=== PATIENT | female | born 1935 | race Hispanic/Latino ===

== ENCOUNTER 2021-06-10 12:38 | Inpatient (IN) | payer MEDICARE, OTHER ==
[~2021-06-10] VITALS: Ht 157.5 cm; Wt 80.4 kg
[2021-06-10 12:39] VITALS: BP 107/53
[2021-06-10 13:02] LABS: BASOPHILS % (AUTO) 0.3 % (0.0-5.0); EOSINOPHILS % (AUTO) 0.9 % (0.0-8.0); HEMATOCRIT 36.7 % (36-48); LYMPHOCYTES % (AUTO) 10.4 % (21.0-51.0); MEAN CORPUSCULAR HEMOGLOBIN 29.3 pg (27.0-33.0); MEAN CORPUSCULAR HGB CONC 33.8 g/dL (32.0-36.0); MEAN CORPUSCULAR VOLUME 86.8 fL (79-99); MONOCYTES % (AUTO) 4.3 % (3.0-13.0); NEUTROPHILS % (AUTO) 83.7 % (40.0-77.0); PLATELET COUNT (AUTO) 147 K/uL (130-400); RED BLOOD CELL COUNT(AUTO) 4.23 MIL/uL (4.00-5.50); RED CELL DISTRIBUTION WIDTH 13.9 % (11.0-15.5); WHITE BLOOD COUNT (AUTO) 12.7 K/uL (4.8-10.8)
[2021-06-10 13:11] LABS: CREATININE 2.3 mg/dL (0.5-1.5); POTASSIUM 3.8 mmol/L (3.5-5.1)
[2021-06-10 13:22] LABS: ALBUMIN 2.8 g/dL (3.5-5.0); BILIRUBIN,TOTAL 0.7 mg/dL (0.2-1.0); TOTAL PROTEIN, SERUM 5.9 g/dL (6.0-8.3); TROPONIN I 0.24 ng/mL (0.00-0.06)
[2021-06-10 13:45] LABS: ABG BASE EXCESS 2.4 mmol/L (-2.0-3.0); ABG HCO3 27.1 mmol/L (21.0-28.0); ABG OXYGEN SATURATION 94.1 % (95.0-99.0); ABG PCO2 42 mmHg (32-45)
[2021-06-10] MEDS ORDERED: NITROGLYCERIN 1GM OINT 1 INCH/1GM TD SCH (14:00)
[2021-06-10] MEDS ORDERED: ASPIRIN 325MG TAB PO SCH (14:00)
[2021-06-10] MEDS ORDERED: INSULIN HUMULIN R 100 UNIT/ML 3ML SQ ONE (14:30)
[2021-06-10] MEDS ORDERED: 0.9%NACL 1000ML 1,000 ML IV SCH (14:30)
[2021-06-10] MEDS ORDERED: ENOXAPARIN SODIUM 80 MG/0.8 ML SQ SCH (14:30)
[2021-06-10 15:21] LABS: INR 1.01 (0.85-1.15)
[2021-06-10 15:31] LABS: TROPONIN I 0.23 ng/mL (0.00-0.06)
[2021-06-10] MEDS ORDERED: ROSU20TA31 PO (17:10)
[2021-06-10] MEDS ORDERED: SITA25TA5 PO (17:12)
[2021-06-10] MEDS ORDERED: GABA-529 PO (17:13)
[2021-06-10] MEDS ORDERED: FURO20TA4 PO (17:14)
[2021-06-10] MEDS ORDERED: CLOP75TA32 PO (17:15)
[2021-06-10] MEDS ORDERED: PRED20TA3 PO (17:16)
[2021-06-10] MEDS ORDERED: METF-444 PO (17:17)
[2021-06-10] MEDS ORDERED: RIVA2.5T PO (17:18)
[2021-06-10] MEDS ORDERED: METO25TA6 PO (17:19)
[2021-06-10] MEDS ORDERED: LEVO50CA4 PO (17:20)
[2021-06-10] MEDS ORDERED: ASPI-1197 PO (17:21)
[2021-06-10] MEDS ORDERED: CHOL500051 PO (17:25)
[2021-06-10] MEDS ORDERED: MAGN400T53 PO (17:25)
[2021-06-10] MEDS ORDERED: PYRI200T10 PO (17:26)
[2021-06-10] MEDS ORDERED: CRAN1CAP10 PO (17:27)
[2021-06-10] MEDS ORDERED: CYAN500T46 PO (17:27)
[2021-06-10 17:30] VITALS: BP 106/65
[2021-06-10 21:18] VITALS: BP 100/84
[2021-06-10 21:31] LABS: TROPONIN I 0.22 ng/mL (0.00-0.06)
[2021-06-10] MEDS ORDERED: ACETAMINOPHEN 650 MG SUPPOSITORY RC PRN (23:30)
[2021-06-10] MEDS ORDERED: ONDANSETRON 4MG TABLET PO PRN (23:30)
[2021-06-10] MEDS ORDERED: ACETAMINOPHEN 325 MG TAB PO PRN (23:30)
[2021-06-10] MEDS: CEFTRIAXONE 1G VIAL IVP SCH (23:30)
[2021-06-10] MEDS ORDERED: CLONIDINE HCL 0.1 MG TABLET PO PRN (23:30)
[2021-06-11] VITALS (9 sets, daily range): BP systolic 95–127; BP diastolic 49–64
[2021-06-11] MEDS ORDERED: PHARMACY COMMUNICATION MISC SCH (00:30)
[2021-06-11] MEDS: IPRATROPIUM/ALBUTEROL SULFATE 3 ML SOLUTION IH SCH ×7 (00:32→21:51)
[2021-06-11 01:42] LABS: TROPONIN I 0.22 ng/mL (0.00-0.06)
[2021-06-11 06:01] LABS: BASOPHILS % (AUTO) 0.4 % (0.0-5.0); EOSINOPHILS % (AUTO) 1.2 % (0.0-8.0); HEMATOCRIT 34.1 % (36-48); LYMPHOCYTES % (AUTO) 18.9 % (21.0-51.0); MEAN CORPUSCULAR HEMOGLOBIN 28.6 pg (27.0-33.0); MEAN CORPUSCULAR HGB CONC 32.8 g/dL (32.0-36.0); NEUTROPHILS % (AUTO) 75.1 % (40.0-77.0); PLATELET COUNT (AUTO) 117 K/uL (130-400); RED BLOOD CELL COUNT(AUTO) 3.92 MIL/uL (4.00-5.50); RED CELL DISTRIBUTION WIDTH 13.8 % (11.0-15.5); WHITE BLOOD COUNT (AUTO) 7.6 K/uL (4.8-10.8)
[2021-06-11 06:22] LABS: HEMOGLOBIN A1C 12.5 % (4.0-6.0)
[2021-06-11 06:26] LABS: MAGNESIUM 1.8 mg/dL (1.80-2.40); PHOSPHORUS 3.9 mg/dL (2.5-4.9); POTASSIUM 3.1 mmol/L (3.5-5.1); THYROID STIMULATING HORMONE 1.96 uIU/mL (0.36-3.74)
[2021-06-11] MEDS: INSULIN LISPRO 100 UNIT/ML 3ML SQ SCH ×4 (07:30→21:24)
[2021-06-11] MEDS: CHOLECALCIFEROL 125 MCG PO SCH (09:00)
[2021-06-11] MEDS: ASPIRIN 81 MG EC TAB PO SCH (10:04)
[2021-06-11] MEDS: PANTOPRAZOLE 40 MG TAB DR PO SCH (10:04)
[2021-06-11] MEDS: METOPROLOL TARTRATE 25 MG TAB PO SCH ×2 (10:04→21:00)
[2021-06-11] MEDS: CLOPIDOGREL 75MG TAB PO SCH (10:04)
[2021-06-11] MEDS: RIVAROXABAN 2.5 MG TABLET PO SCH ×2 (10:04→21:23)
[2021-06-11] MEDS: CYANOCOBALAMIN (VITAMIN B-12) 1,000 MCG TABLET PO SCH (18:53)
[2021-06-11] MEDS: ATORVASTATIN 40 MG TABLET PO SCH (21:21)
[2021-06-11] MEDS: PYRIDOXINE HCL 50 MG TABLET PO SCH (21:26)
[2021-06-11] MEDS: CEFTRIAXONE 1G VIAL IVP SCH (22:51)
[2021-06-11] MEDS ORDERED: VANCOMYCIN 1G VIAL IVPB ONE (23:30)
[2021-06-11] MEDS ORDERED: VANCOMYCIN PROTOCOL PER PHARMACY IV SCH (23:30)
[2021-06-12] MEDS ORDERED: VANCOMYCIN 1G/250ML KIT 250 ML IV ONE (00:30)
[2021-06-12] MEDS: IPRATROPIUM/ALBUTEROL SULFATE 3 ML SOLUTION IH SCH ×6 (01:43→23:20)
[2021-06-12] MEDS ORDERED: 0.9%NACL 100ML 100 ML ONE (07:31)
[2021-06-12 07:34] LABS: HEMATOCRIT 33.2 % (36-48); MEAN CORPUSCULAR HEMOGLOBIN 28.9 pg (27.0-33.0); MEAN CORPUSCULAR HGB CONC 32.8 g/dL (32.0-36.0); MEAN CORPUSCULAR VOLUME 88.1 fL (79-99); RED BLOOD CELL COUNT(AUTO) 3.77 MIL/uL (4.00-5.50); RED CELL DISTRIBUTION WIDTH 13.9 % (11.0-15.5); WHITE BLOOD COUNT (AUTO) 8.7 K/uL (4.8-10.8)
[2021-06-12 07:54] LABS: CREATININE 1.6 mg/dL (0.5-1.5); POTASSIUM 3.4 mmol/L (3.5-5.1)
[2021-06-12] MEDS: LEVOTHYROXINE 50 MCG TABLET PO SCH (08:05)
[2021-06-12] MEDS: INSULIN LISPRO 100 UNIT/ML 3ML SQ SCH ×4 (08:05→21:30)
[2021-06-12] MEDS: CYANOCOBALAMIN (VITAMIN B-12) 1,000 MCG TABLET PO SCH (08:06)
[2021-06-12] MEDS: METOPROLOL TARTRATE 25 MG TAB PO SCH ×2 (08:06→22:01)
[2021-06-12] MEDS: ASPIRIN 81 MG EC TAB PO SCH (08:06)
[2021-06-12] MEDS: CLOPIDOGREL 75MG TAB PO SCH (08:06)
[2021-06-12] MEDS: PANTOPRAZOLE 40 MG TAB DR PO SCH (08:06)
[2021-06-12 08:36] VITALS: BP_SYST 110; BP_SYST 135; BP_DIAS 49; BP_DIAS 74
[2021-06-12 08:55] VITALS: BP 127/94
[2021-06-12] MEDS: PYRIDOXINE HCL 50 MG TABLET PO SCH (09:00)
[2021-06-12] MEDS: CHOLECALCIFEROL 125 MCG PO SCH (09:00)
[2021-06-12] MEDS: RIVAROXABAN 2.5 MG TABLET PO SCH ×2 (09:07→22:01)
[2021-06-12] MEDS ORDERED: TRAMADOL HCL 50 MG TABLET PO PRN (10:30)
[2021-06-12 12:00] VITALS: BP 125/62
[2021-06-12] MEDS: VANCOMYCIN 500MG+NS 100ML IVPB IV SCH (14:10)
[2021-06-12] MEDS: 0.9%NACL 100ML 100 ML IV SCH (14:10)
[2021-06-12 16:41] VITALS: BP 142/72
[2021-06-12 20:29] VITALS: BP 142/72
[2021-06-12] MEDS: ATORVASTATIN 40 MG TABLET PO SCH (22:01)
[2021-06-12] MEDS: CEFTRIAXONE 1G VIAL IVP SCH (23:31)
[2021-06-12] MEDS ORDERED: GUAIFENESIN-DM 200/20 MG 10 ML ONE (23:46)
[2021-06-13] VITALS (7 sets, daily range): BP systolic 125–155; BP diastolic 59–119
[2021-06-13] MEDS ORDERED: GUAIFENESIN-DM 200/20 MG 10 ML PO PRN
[2021-06-13] MEDS: IPRATROPIUM/ALBUTEROL SULFATE 3 ML SOLUTION IH SCH ×6 (03:31→23:08)
[2021-06-13 05:47] LABS: HEMATOCRIT 31.6 % (36-48); MEAN CORPUSCULAR HEMOGLOBIN 28.9 pg (27.0-33.0); MEAN CORPUSCULAR HGB CONC 33.2 g/dL (32.0-36.0); MEAN CORPUSCULAR VOLUME 87.1 fL (79-99); RED BLOOD CELL COUNT(AUTO) 3.63 MIL/uL (4.00-5.50); RED CELL DISTRIBUTION WIDTH 13.9 % (11.0-15.5); WHITE BLOOD COUNT (AUTO) 5.4 K/uL (4.8-10.8)
[2021-06-13] MEDS ORDERED: GUAIFENESIN-DM 200/20 MG 10 ML ONE (05:51)
[2021-06-13] MEDS: LEVOTHYROXINE 50 MCG TABLET PO SCH (05:55)
[2021-06-13 06:06] LABS: CREATININE 1.1 mg/dL (0.5-1.5)
[2021-06-13 06:26] LABS: POTASSIUM 2.8 mmol/L (3.5-5.1)
[2021-06-13] MEDS: INSULIN LISPRO 100 UNIT/ML 3ML SQ SCH ×4 (08:00→21:45)
[2021-06-13] MEDS ORDERED: MAGNESIUM 2GM PREMIX 50ML 50 ML IV PRN (09:00)
[2021-06-13] MEDS ORDERED: POTASSIUM CHLORIDE 10% ELIXIR 20 MEQ/15 ML UDCUP PO PRN (09:00)
[2021-06-13] MEDS ORDERED: LIDOCAINE HCL-MPF 1% 2ML VIAL IV PRN (09:00)
[2021-06-13] MEDS: PYRIDOXINE HCL 50 MG TABLET PO SCH (09:00)
[2021-06-13] MEDS: CHOLECALCIFEROL 125 MCG PO SCH (09:00)
[2021-06-13] MEDS ORDERED: POTASSIUM CHLORIDE 20MEQ/100ML 100 ML IV PRN (09:00)
[2021-06-13] MEDS: ASPIRIN 81 MG EC TAB PO SCH (11:58)
[2021-06-13] MEDS: METOPROLOL TARTRATE 25 MG TAB PO SCH ×2 (11:59→21:39)
[2021-06-13] MEDS: CLOPIDOGREL 75MG TAB PO SCH (11:59)
[2021-06-13] MEDS: PANTOPRAZOLE 40 MG TAB DR PO SCH (12:00)
[2021-06-13] MEDS: CYANOCOBALAMIN (VITAMIN B-12) 1,000 MCG TABLET PO SCH (12:00)
[2021-06-13] MEDS: RIVAROXABAN 2.5 MG TABLET PO SCH ×2 (12:04→21:39)
[2021-06-13 14:37] LABS: APPEARANCE,URINE Cloudy (CLEAR); BILIRUBIN,URINE Negative (NEGATIVE); COLOR,URINE Yellow (YELLOW); GLUCOSE, URINE (UA) 500 mg/dL (NEGATIVE); KETONES,URINE Trace mg/dL (NEGATIVE); LEUKOCYTE ESTERASE ,URINE Moderate (NEGATIVE); NITRATE,URINE Negative (NEGATIVE); OCCULT BLOOD,URINE Moderate (NEGATIVE); PH,URINE 5.5 (5.0-8.0); PROTEIN,URINE POS 2+ mg/dL (NEGATIVE); UROBILINOGEN,URINE 0.2 mg/dL (0.2-1.0)
[2021-06-13 15:19] LABS: BACTERIA,URINE Few /HPF (None Seen); WBC,URINE 26-50 /HPF (0-1)
[2021-06-13 15:20] LABS: SQUAMOUS EPITHELIAL CELL,UR None Seen /HPF (0-2)
[2021-06-13] MEDS: KCL 20 MEQ ERTAB PO PRN ×2 (17:23→22:00)
[2021-06-13] MEDS: VANCOMYCIN 500MG+NS 100ML IVPB IV SCH (17:23)
[2021-06-13] MEDS: 0.9%NACL 100ML 100 ML IV SCH (17:24)
[2021-06-13] MEDS: NYSTATIN-TRIAMCINOLONE CREAM 15 GM TP SCH (21:00)
[2021-06-13] MEDS: ATORVASTATIN 40 MG TABLET PO SCH (21:39)
[2021-06-13] MEDS: CEFTRIAXONE 1G VIAL IVP SCH (23:37)
[2021-06-14] MEDS: IPRATROPIUM/ALBUTEROL SULFATE 3 ML SOLUTION IH SCH ×5 (02:06→18:33)
[2021-06-14 03:50] LABS: ALBUMIN 2.3 g/dL (3.5-5.0); BILIRUBIN,TOTAL 0.3 mg/dL (0.2-1.0); CREATININE 1.1 mg/dL (0.5-1.5); POTASSIUM 3.8 mmol/L (3.5-5.1); TOTAL PROTEIN, SERUM 5.5 g/dL (6.0-8.3)
[2021-06-14 04:32] VITALS: BP 135/73
[2021-06-14] MEDS: LEVOTHYROXINE 50 MCG TABLET PO SCH (06:21)
[2021-06-14] MEDS: KCL 20 MEQ ERTAB PO PRN ×3 (06:22→11:58)
[2021-06-14] MEDS: INSULIN LISPRO 100 UNIT/ML 3ML SQ SCH ×3 (06:35→16:39)
[2021-06-14 07:51] VITALS: BP 158/71
[2021-06-14] MEDS: CHOLECALCIFEROL 125 MCG PO SCH (09:00)
[2021-06-14] MEDS ORDERED: MAGNESIUM OXIDE 400 MG TABLET PO SCH (09:00)
[2021-06-14] MEDS ORDERED: LINAGLIPTIN 5 MG TABLET PO SCH (09:00)
[2021-06-14] MEDS ORDERED: FUROSEMIDE 20 MG TABLET PO SCH (09:00)
[2021-06-14] MEDS: NYSTATIN-TRIAMCINOLONE CREAM 15 GM TP SCH (09:00)
[2021-06-14] MEDS: PANTOPRAZOLE 40 MG TAB DR PO SCH (09:11)
[2021-06-14] MEDS: ASPIRIN 81 MG EC TAB PO SCH (09:11)
[2021-06-14] MEDS: RIVAROXABAN 2.5 MG TABLET PO SCH (09:11)
[2021-06-14] MEDS: PYRIDOXINE HCL 50 MG TABLET PO SCH (09:11)
[2021-06-14] MEDS: GABAPENTIN 100 MG CAPSULE PO SCH ×2 (09:12→16:42)
[2021-06-14] MEDS: CYANOCOBALAMIN (VITAMIN B-12) 1,000 MCG TABLET PO SCH (09:12)
[2021-06-14] MEDS: CLOPIDOGREL 75MG TAB PO SCH (09:12)
[2021-06-14] MEDS: METOPROLOL TARTRATE 25 MG TAB PO SCH (09:16)
[2021-06-14] MEDS: METFORMIN HCL 500 MG TABLET PO SCH ×2 (09:16→16:36)
[2021-06-14 11:25] VITALS: BP 138/70
[2021-06-14] MEDS ORDERED: VANCOMYCIN KIT 1 GM/250 ML IV.KIT IV SCH (14:00)
[2021-06-14 15:36] VITALS: BP 145/77
[2021-06-14] MEDS: 0.9%NACL 100ML 100 ML IV SCH (16:38)
== END 2021-06-14 19:45 | DRG 683 ==
LOC: EDH 12:38 → OBSVTOIN 14:28 → EDHIP 14:28 → 4DH 06-12 09:25
PROVIDERS: ADMIT Internal Medicine Critical Care Medicine; ATTEND Internal Medicine Critical Care Medicine
DX: N17.9 Acute kidney failure, unspecified (principal); R78.81 Bacteremia; N39.0 Urinary tract infection, site not specified; I12.9 Hypertensive chronic kidney disease with stage 1 through stage 4 chronic kidney disease, or unspecified chronic kidney disease; I48.91 Unspecified atrial fibrillation; I25.10 Atherosclerotic heart disease of native coronary artery without angina pectoris; N18.9 Chronic kidney disease, unspecified; F03.90 Unspecified dementia, unspecified severity, without behavioral disturbance, psychotic disturbance, mood disturbance, and anxiety; M19.90 Unspecified osteoarthritis, unspecified site; E78.5 Hyperlipidemia, unspecified; E11.22 Type 2 diabetes mellitus with diabetic chronic kidney disease; R41.0 Disorientation, unspecified; E03.9 Hypothyroidism, unspecified; R29.6 Repeated falls; R77.8 Other specified abnormalities of plasma proteins; Z20.822 Contact with and (suspected) exposure to COVID-19; Z79.01 Long term (current) use of anticoagulants; Z79.84 Long term (current) use of oral hypoglycemic drugs; Z79.82 Long term (current) use of aspirin; Z79.899 Other long term (current) drug therapy; Z87.440 Personal history of urinary (tract) infections
CPT/HCPCS: 36415; 36600; 70450; 71045; 76700; 80048; 80053; 80061; 80202; 81001; 82140; 82550; 82803; 82948; 83036; 83605; 83735; 83874; 83880; 84100; 84443; 84484; 85025; 85027; 85378; 85610; 87040; 87077; 87088; 87186; 87635; 87804; 93005; 93306; 93356; 94640; 94664; 97039; C9803; G0378; J0696; J1650; J1815; J3370; J3475; J3480; Q0162

== ENCOUNTER 2021-09-03 00:27 | Inpatient (IN) | payer OTHER ==
[~2021-09-03] VITALS: Ht 152.4 cm; Wt 86.2 kg
[~2021-09-03 00:27] MED LIST: ASPI-1197 PO; CHOL500051 PO; CLOP75TA32 PO; CRAN1CAP10 PO; CYAN500T46 PO; FURO20TA4 PO; GABA-529 PO; LEVO50CA4 PO; MAGN400T53 PO; METF-444 PO; METO25TA6 PO; PRED20TA3 PO; PYRI200T10 PO; RIVA2.5T PO; ROSU20TA31 PO; SITA25TA5 PO
[2021-09-03 01:13] LABS: BASOPHILS % (AUTO) 0.4 % (0.0-5.0); EOSINOPHILS % (AUTO) 0.9 % (0.0-8.0); HEMATOCRIT 26.8 % (36-48); LYMPHOCYTES % (AUTO) 18.2 % (21.0-51.0); MEAN CORPUSCULAR HEMOGLOBIN 27.8 pg (27.0-33.0); MEAN CORPUSCULAR HGB CONC 30.6 g/dL (32.0-36.0); MEAN CORPUSCULAR VOLUME 90.8 fL (79-99); MONOCYTES % (AUTO) 4.1 % (3.0-13.0); NEUTROPHILS % (AUTO) 75.5 % (40.0-77.0); PLATELET COUNT (AUTO) 166 K/uL (130-400); RED BLOOD CELL COUNT(AUTO) 2.95 MIL/uL (4.00-5.50); RED CELL DISTRIBUTION WIDTH 14.2 % (11.0-15.5); WHITE BLOOD COUNT (AUTO) 13.9 K/uL (4.8-10.8)
[2021-09-03 01:25] LABS: INR 1.12 (0.85-1.15); PROTHROMBIN TIME 12.1 SEC (9.6-11.6)
[2021-09-03 01:26] LABS: PARTIAL THROMBOPLASTIN TIME 20.7 SEC (26.3-35.5)
[2021-09-03 01:28] LABS: ALBUMIN 2.9 g/dL (3.5-5.0); BILIRUBIN,TOTAL 0.3 mg/dL (0.2-1.0); CREATININE 1.4 mg/dL (0.5-1.5); POTASSIUM 5.7 mmol/L (3.5-5.1); TOTAL PROTEIN, SERUM 6.1 g/dL (6.0-8.3)
[2021-09-03] MEDS ORDERED: PANTOPRAZOLE 40 MG/VIAL IV SCH (01:30)
[2021-09-03] MEDS ORDERED: ONDANSETRON 4MG INJ IVP ONE (01:30)
[2021-09-03] MEDS ORDERED: PANTOPRAZOLE 40MG INJ 80 MG in 0.9%NACL 100ML 100 ML IVP SCH (01:30)
[2021-09-03] MEDS ORDERED: INSULIN HUMULIN R 100 UNIT/ML 3ML ONE (01:43)
[2021-09-03 01:57] LABS: BILIRUBIN,URINE Negative (NEGATIVE); COLOR,URINE Yellow (YELLOW); GLUCOSE, URINE (UA) 250 mg/dL (NEGATIVE); KETONES,URINE Negative (NEGATIVE); LEUKOCYTE ESTERASE ,URINE Small (NEGATIVE); NITRATE,URINE Negative (NEGATIVE); OCCULT BLOOD,URINE Moderate (NEGATIVE); PROTEIN,URINE POS 2+ mg/dL (NEGATIVE)
[2021-09-03 01:59] LABS: APPEARANCE,URINE HAZY (CLEAR)
[2021-09-03] MEDS ORDERED: 0.9%NACL 1000ML 1,000 ML IV ONE (02:00)
[2021-09-03] MEDS ORDERED: INSULIN HUMULIN R 100 UNIT/ML 3ML SQ ONE ×2 (02:00→05:45)
[2021-09-03 02:21] LABS: AMORPHOUS SEDIMENT,UR Moderate /LPF (None Seen); BACTERIA,URINE Few /HPF (None Seen); SQUAMOUS EPITHELIAL CELL,UR 0-2 /HPF (0-2)
[2021-09-03] MEDS ORDERED: ONDANSETRON 4MG INJ IVP PRN (03:00)
[2021-09-03] MEDS: 0.9%NACL 1000ML 1,000 ML IV SCH ×2 (03:08→18:03)
[2021-09-03] MEDS ORDERED: ZOSYN 3.375GM +NS 50ML IV SCH (03:30)
[2021-09-03 04:51] LABS: BASOPHILS % (AUTO) 0.2 % (0.0-5.0); EOSINOPHILS % (AUTO) 0.1 % (0.0-8.0); HEMATOCRIT 21.9 % (36-48); MEAN CORPUSCULAR HEMOGLOBIN 27.6 pg (27.0-33.0); MEAN CORPUSCULAR HGB CONC 30.6 g/dL (32.0-36.0); MEAN CORPUSCULAR VOLUME 90.1 fL (79-99); MONOCYTES % (AUTO) 5.2 % (3.0-13.0); NEUTROPHILS % (AUTO) 81.8 % (40.0-77.0); PLATELET COUNT (AUTO) 112 K/uL (130-400); RED BLOOD CELL COUNT(AUTO) 2.43 MIL/uL (4.00-5.50); RED CELL DISTRIBUTION WIDTH 14.1 % (11.0-15.5); WHITE BLOOD COUNT (AUTO) 10.3 K/uL (4.8-10.8)
[2021-09-03 05:05] LABS: ALBUMIN 2.4 g/dL (3.5-5.0); BILIRUBIN,TOTAL 0.2 mg/dL (0.2-1.0); CREATININE 1.2 mg/dL (0.5-1.5); MAGNESIUM 1.7 mg/dL (1.80-2.40); PHOSPHORUS 4.9 mg/dL (2.5-4.9); POTASSIUM 5.4 mmol/L (3.5-5.1); TOTAL PROTEIN, SERUM 5.1 g/dL (6.0-8.3)
[2021-09-03] MEDS ORDERED: CALCIUM GLUC 1GM/10ML VIAL IV SCH (08:30)
[2021-09-03] MEDS ORDERED: OCTREOTIDE ACETATE 1,250 MCG in 0.9% NACL 250ML 250 ML IV SCH (08:30)
[2021-09-03] MEDS ORDERED: OCTREOTIDE ACETATE 100 MCG/ML AMP IV SCH (08:30)
[2021-09-03 08:36] LABS: ABG BASE EXCESS -4.7 mmol/L (-2.0-3.0); ABG HCO3 19.8 mmol/L (21.0-28.0); ABG OXYGEN SATURATION 94.8 % (95.0-99.0); ABG PCO2 33 mmHg (32-45)
[2021-09-03 08:44] LABS: HEMOGLOBIN A1C 7.9 % (4.0-6.0)
[2021-09-03] MEDS: PANTOPRAZOLE 40MG INJ 80 MG in 0.9%NACL 100ML 100 ML IV SCH ×2 (08:55→21:34)
[2021-09-03] MEDS: INSULIN HUMULIN R 100 UNIT/ML 3ML SQ SCH ×3 (09:23→21:00)
[2021-09-03] MEDS: MEROPENEM 1 GM VIAL IVP SCH ×2 (09:23→18:03)
[2021-09-03] MEDS ORDERED: ACETAMINOPHEN 325 MG TAB PO PRN (10:30)
[2021-09-03] MEDS ORDERED: HYDROMORPHONE 0.5 MG SYG (0.5MG/0.5ML) IVP PRN (10:30)
[2021-09-03] MEDS ORDERED: PANTOPRAZOLE 40 MG/VIAL ONE (10:47)
[2021-09-03] MEDS ORDERED: 0.9%NACL 100ML 100 ML ONE (10:48)
[2021-09-03 18:40] LABS: BASOPHILS % (AUTO) 0.2 % (0.0-5.0); EOSINOPHILS % (AUTO) 0.8 % (0.0-8.0); HEMATOCRIT 28.9 % (36-48); LYMPHOCYTES % (AUTO) 24.4 % (21.0-51.0); MEAN CORPUSCULAR HEMOGLOBIN 28.4 pg (27.0-33.0); MEAN CORPUSCULAR HGB CONC 32.2 g/dL (32.0-36.0); MEAN CORPUSCULAR VOLUME 88.4 fL (79-99); MONOCYTES % (AUTO) 6.6 % (3.0-13.0); NEUTROPHILS % (AUTO) 67.4 % (40.0-77.0); PLATELET COUNT (AUTO) 128 K/uL (130-400); RED BLOOD CELL COUNT(AUTO) 3.27 MIL/uL (4.00-5.50); RED CELL DISTRIBUTION WIDTH 14.4 % (11.0-15.5); WHITE BLOOD COUNT (AUTO) 8.7 K/uL (4.8-10.8)
[2021-09-03 18:53] LABS: CREATININE 1.4 mg/dL (0.5-1.5)
[2021-09-03 18:57] LABS: ALBUMIN 2.8 g/dL (3.5-5.0); BILIRUBIN,TOTAL 0.2 mg/dL (0.2-1.0); TOTAL PROTEIN, SERUM 5.7 g/dL (6.0-8.3)
[2021-09-03 19:00] VITALS: BP 156/62
[2021-09-03 20:00] VITALS: BP 131/53
[2021-09-03 21:00] VITALS: BP 138/54
[2021-09-03] MEDS: METOPROLOL TARTRATE 25 MG TAB PO SCH ×2 (21:00→22:54)
[2021-09-03 22:00] VITALS: BP 129/59
[2021-09-03] MEDS: DEXTROSE 5%-WATER 1,000 ML IV SCH (22:54)
[2021-09-03 23:00] VITALS: BP 124/60
[2021-09-04] VITALS (15 sets, daily range): BP systolic 104–180; BP diastolic 55–109
[2021-09-04] MEDS: MEROPENEM 1 GM VIAL IVP SCH ×3 (01:32→18:28)
[2021-09-04 02:20] LABS: HEMATOCRIT 27.1 % (36-48)
[2021-09-04] MEDS: INSULIN HUMULIN R 100 UNIT/ML 3ML SQ SCH ×4 (04:18→21:44)
[2021-09-04 06:07] LABS: CREATININE 1.3 mg/dL (0.5-1.5); POTASSIUM 4.4 mmol/L (3.5-5.1)
[2021-09-04] MEDS: PANTOPRAZOLE 40MG INJ 80 MG in 0.9%NACL 100ML 100 ML IV SCH (07:04)
[2021-09-04] MEDS ORDERED: PROPOFOL 10 MG/ML 20ML VIAL IV ONE ×3 (07:05→15:32)
[2021-09-04] MEDS ORDERED: SUCCINYLCHOLINE 200MG/10ML SYR ONE (07:08)
[2021-09-04] MEDS: METOPROLOL TARTRATE 25 MG TAB PO SCH ×2 (09:00→20:11)
[2021-09-04] MEDS ORDERED: PANTOPRAZOLE 40 MG TAB DR PO SCH (09:00)
[2021-09-04] MEDS: PANTOPRAZOLE 40 MG/VIAL IVP SCH ×2 (10:03→20:11)
[2021-09-04] MEDS: DEXTROSE 5%-WATER 1,000 ML IV SCH (11:20)
[2021-09-04] MEDS ORDERED: EPHEDRINE SULFATE 50 MG/ML AMPULE ONE (15:34)
[2021-09-04] MEDS ORDERED: PHENYLEPHRINE HCL 10 MG/ML 1ML VIAL IV ONE (15:44)
[2021-09-05] MEDS: MEROPENEM 1 GM VIAL IVP SCH ×2 (00:08→10:01)
[2021-09-05 03:39] LABS: BASOPHILS % (AUTO) 0.6 % (0.0-5.0); HEMATOCRIT 27.5 % (36-48); LYMPHOCYTES % (AUTO) 24.5 % (21.0-51.0); MEAN CORPUSCULAR HEMOGLOBIN 28.1 pg (27.0-33.0); MEAN CORPUSCULAR HGB CONC 31.3 g/dL (32.0-36.0); MEAN CORPUSCULAR VOLUME 89.9 fL (79-99); MONOCYTES % (AUTO) 5.4 % (3.0-13.0); NEUTROPHILS % (AUTO) 63.2 % (40.0-77.0); PLATELET COUNT (AUTO) 108 K/uL (130-400); RED BLOOD CELL COUNT(AUTO) 3.06 MIL/uL (4.00-5.50); RED CELL DISTRIBUTION WIDTH 14.4 % (11.0-15.5); WHITE BLOOD COUNT (AUTO) 6.9 K/uL (4.8-10.8)
[2021-09-05 03:49] LABS: CREATININE 1.1 mg/dL (0.5-1.5)
[2021-09-05 04:00] VITALS: BP 140/90
[2021-09-05] MEDS: INSULIN HUMULIN R 100 UNIT/ML 3ML SQ SCH ×2 (07:30→11:30)
[2021-09-05 07:51] VITALS: BP 174/77
[2021-09-05] MEDS ORDERED: OMEP40CA21 PO (08:06)
[2021-09-05] MEDS: PANTOPRAZOLE 40 MG/VIAL IVP SCH (10:01)
[2021-09-05] MEDS: METOPROLOL TARTRATE 25 MG TAB PO SCH (10:01)
[2021-09-05 11:40] VITALS: BP 166/49
== END 2021-09-05 14:30 | disposition home or self-care (01) | DRG 378 ==
LOC: EDH 00:27 → EDHIP 02:52 → 2DH 18:40 → 3DH 09-05 05:31
PROVIDERS: ADMIT Hospitalist; ATTEND Hospitalist
PROC: 30233R1 Transfusion of Nonautologous Platelets into Peripheral Vein, Percutaneous Approach (ICD-10-PCS; 2021-09-03)
PROC: 30233N1 Transfusion of Nonautologous Red Blood Cells into Peripheral Vein, Percutaneous Approach (ICD-10-PCS; 2021-09-03)
PROC: 0DB68ZX Excision of Stomach, Via Natural or Artificial Opening Endoscopic, Diagnostic (ICD-10-PCS; principal; 2021-09-04)
DX: K25.4 Chronic or unspecified gastric ulcer with hemorrhage (principal); D62 Acute posthemorrhagic anemia; N17.9 Acute kidney failure, unspecified; E11.40 Type 2 diabetes mellitus with diabetic neuropathy, unspecified; E11.65 Type 2 diabetes mellitus with hyperglycemia; M19.90 Unspecified osteoarthritis, unspecified site; E78.5 Hyperlipidemia, unspecified; I10 Essential (primary) hypertension; I48.91 Unspecified atrial fibrillation; I25.10 Atherosclerotic heart disease of native coronary artery without angina pectoris; F03.90 Unspecified dementia, unspecified severity, without behavioral disturbance, psychotic disturbance, mood disturbance, and anxiety; K31.89 Other diseases of stomach and duodenum; E03.9 Hypothyroidism, unspecified; E87.5 Hyperkalemia; E86.0 Dehydration; D72.829 Elevated white blood cell count, unspecified; Z79.01 Long term (current) use of anticoagulants; Z86.19 Personal history of other infectious and parasitic diseases; Z79.84 Long term (current) use of oral hypoglycemic drugs; Z79.899 Other long term (current) drug therapy; Z90.12 Acquired absence of left breast and nipple; Z85.820 Personal history of malignant melanoma of skin; Z89.432 Acquired absence of left foot
CPT/HCPCS: 36415; 36600; 43239; 70450; 71045; 74176; 76705; 80048; 80053; 81001; 82010; 82140; 82270; 82330; 82435; 82803; 82947; 82948; 83036; 83605; 83690; 83735; 83880; 84100; 84132; 84145; 84295; 84484; 85014; 85018; 85025; 85610; 85730; 86850; 86900; 86901; 86923; 87040; 87088; 93005; 97039; 99291; A4606; C9113; G0378; J0330; J0610; J1170; J1815; J2185; J2354; J2370; J2405; J2543; J2704; J3490; J7030; J7050; J7070; P9016; P9034

== ENCOUNTER → 2021-09-27 | Outpatient (CLI) | payer OTHER ==
[~2021-09-27] MED LIST changes: +OMEP40CA21 PO; -RIVA2.5T PO
== END | disposition home or self-care (01) ==
LOC: RAH 11:09
PROVIDERS: ATTEND Family Medicine
DX: M47.815 Spondylosis without myelopathy or radiculopathy, thoracolumbar region (principal); R05.9 Cough, unspecified
CPT/HCPCS: 71046

== ENCOUNTER 2022-05-08 14:01 | Emergency (ER) | payer OTHER, MEDICARE ==
[~2022-05-08] VITALS: Ht 157.5 cm; Wt 99.8 kg
[~2022-05-08 14:01] MED LIST changes: -CLOP75TA32 PO; -CRAN1CAP10 PO; +LEVO500T90 PO; +LISI10TA24 PO; -METF-444 PO; -METO25TA6 PO; -OMEP40CA21 PO; +PANT40TA54 PO; -PRED20TA3 PO; -SITA25TA5 PO
[2022-05-08 14:28] LABS: BASOPHILS % (AUTO) 0.3 % (0.0-5.0); EOSINOPHILS % (AUTO) 1.9 % (0.0-8.0); HEMATOCRIT 26.4 % (36-48); LYMPHOCYTES % (AUTO) 28.2 % (21.0-51.0); MEAN CORPUSCULAR HEMOGLOBIN 29.7 pg (27.0-33.0); MEAN CORPUSCULAR HGB CONC 32.6 g/dL (32.0-36.0); MONOCYTES % (AUTO) 5.7 % (3.0-13.0); NEUTROPHILS % (AUTO) 63.6 % (40.0-77.0); PLATELET COUNT (AUTO) 65 K/uL (130-400); RED CELL DISTRIBUTION WIDTH 13.2 % (11.0-15.5); WHITE BLOOD COUNT (AUTO) 3.2 K/uL (4.8-10.8)
[2022-05-08] MEDS ORDERED: ONDANSETRON 4MG INJ IVP ONE (14:30)
[2022-05-08] MEDS ORDERED: MORPHINE 2 MG SYG IVP ONE (14:30)
[2022-05-08 14:46] LABS: ALBUMIN 2.9 g/dL (3.5-5.0); CREATININE 1.1 mg/dL (0.5-1.5); POTASSIUM 4.3 mmol/L (3.5-5.1); TOTAL PROTEIN, SERUM 6.1 g/dL (6.0-8.3)
[2022-05-08 14:49] LABS: INR 0.96 (0.85-1.15); PROTHROMBIN TIME 10.5 SEC (9.6-11.6)
[2022-05-08 14:51] LABS: PARTIAL THROMBOPLASTIN TIME 23.2 SEC (26.3-35.5)
[2022-05-08 15:36] LABS: APPEARANCE,URINE CLEAR (CLEAR); BILIRUBIN,URINE NEGATIVE (NEGATIVE); COLOR,URINE YELLOW (YELLOW); GLUCOSE, URINE (UA) NEGATIVE (NEGATIVE); KETONES,URINE NEGATIVE (NEGATIVE); LEUKOCYTE ESTERASE ,URINE SMALL (NEGATIVE); NITRATE,URINE NEGATIVE (NEGATIVE); OCCULT BLOOD,URINE TRACE-INTACT (NEGATIVE); PH,URINE 5.5 (5.0-8.0); PROTEIN,URINE 100 mg/dL (NEGATIVE); UROBILINOGEN,URINE 0.2 mg/dL (0.2-1.0)
[2022-05-08 15:48] LABS: BACTERIA,URINE Few /HPF (None Seen); MUCUS,URINE Few LPF (None Seen); SQUAMOUS EPITHELIAL CELL,UR Few /HPF (0-2)
[2022-05-08] MEDS ORDERED: NITROFURANTOIN MONOHYD/M-CRYST 100 MG CAPSULE PO ONE (16:00)
[2022-05-08 16:12] VITALS: BP 153/45
[2022-05-08] MEDS ORDERED: ACET-2247 PO (16:38)
[2022-05-08] MEDS ORDERED: MACR100 PO (16:38)
== END 2022-05-08 16:46 | disposition home or self-care (01) ==
LOC: EDH 14:01
DX: S70.01XA Contusion of right hip, initial encounter (principal); N39.0 Urinary tract infection, site not specified; E11.9 Type 2 diabetes mellitus without complications; D64.9 Anemia, unspecified; F03.90 Unspecified dementia, unspecified severity, without behavioral disturbance, psychotic disturbance, mood disturbance, and anxiety; Z88.1 Allergy status to other antibiotic agents; Z79.899 Other long term (current) drug therapy; Z79.82 Long term (current) use of aspirin; Z98.890 Other specified postprocedural states; W19.XXXA Unspecified fall, initial encounter; Y93.89 Activity, other specified; Y92.89 Other specified places as the place of occurrence of the external cause; Y99.8 Other external cause status
CPT/HCPCS: 99285; 70450; 96374; 71045; 96375; 84484; 80053; 85025; 85610; 85730; 86850; 86900; 86901; 87077; 87088; 87186; 81001; 36415; 73502 ×2; 72125; 73700; 51702; 93005; J2405

== ENCOUNTER 2022-11-24 12:30 | Inpatient (IN) | payer OTHER ==
[~2022-11-24] VITALS: Ht 167.6 cm; Wt 78.8 kg
[2022-11-24 11:00] VITALS: BP 75/42
[~2022-11-24 12:30] MED LIST changes: +ACET-2247 PO; -ASPI-1197 PO; -CHOL500051 PO; +CYAN250014 PO; -CYAN500T46 PO; -GABA-529 PO; -LEVO500T90 PO; -LEVO50CA4 PO; -LISI10TA24 PO; +MACR100 PO; -MAGN400T53 PO; +NAPR-1192 PO; -PANT40TA54 PO; +PRED20TA3 PO; -PYRI200T10 PO; -ROSU20TA31 PO
[2022-11-24 16:00] VITALS: BP 143/88
[2022-11-24] MEDS ORDERED: ACETAMINOPHEN 650 MG SUPPOSITORY RC PRN (16:30)
[2022-11-24] MEDS ORDERED: MORPHINE 2 MG SYG IVP PRN (16:30)
[2022-11-24] MEDS ORDERED: BISACODYL 10 MG SUPP.RECT RC PRN (16:30)
[2022-11-24] MEDS ORDERED: LORAZEPAM 2 MG/ML 1 ML VIAL IVP PRN (16:30)
[2022-11-24] MEDS ORDERED: ONDANSETRON 4MG INJ IV PRN (16:30)
[2022-11-24] MEDS: GLYCOPYRROLATE 1 MG/5 ML SYRINGE IV PRN (18:43)
[2022-11-24] MEDS: MORPHINE 4 MG SYG IVP PRN ×2 (18:44→22:15)
[2022-11-24 22:00] VITALS: BP 61/35
[2022-11-24 22:30] VITALS: BP 61/35
[2022-11-25] MEDS: GLYCOPYRROLATE 1 MG/5 ML SYRINGE IV PRN (01:52)
[2022-11-25 05:31] VITALS: BP 75/51
== END 2022-11-25 15:00 | DRG 871 ==
LOC: 2CH 12:30 → 4CH 13:00
PROVIDERS: ADMIT Internal Medicine; ATTEND Internal Medicine
DX: A41.50 Gram-negative sepsis, unspecified (principal); I50.33 Acute on chronic diastolic (congestive) heart failure; K63.1 Perforation of intestine (nontraumatic); K65.9 Peritonitis, unspecified; J69.0 Pneumonitis due to inhalation of food and vomit; E87.1 Hypo-osmolality and hyponatremia; G93.49 Other encephalopathy; I13.0 Hypertensive heart and chronic kidney disease with heart failure and stage 1 through stage 4 chronic kidney disease, or unspecified chronic kidney disease; N17.9 Acute kidney failure, unspecified; N39.0 Urinary tract infection, site not specified; I48.91 Unspecified atrial fibrillation; D69.6 Thrombocytopenia, unspecified; C50.919 Malignant neoplasm of unspecified site of unspecified female breast; E03.9 Hypothyroidism, unspecified; E11.22 Type 2 diabetes mellitus with diabetic chronic kidney disease; E11.51 Type 2 diabetes mellitus with diabetic peripheral angiopathy without gangrene; E78.5 Hyperlipidemia, unspecified; F03.90 Unspecified dementia, unspecified severity, without behavioral disturbance, psychotic disturbance, mood disturbance, and anxiety; G89.29 Other chronic pain; I25.10 Atherosclerotic heart disease of native coronary artery without angina pectoris; N18.30 Chronic kidney disease, stage 3 unspecified; E11.65 Type 2 diabetes mellitus with hyperglycemia; K27.9 Peptic ulcer, site unspecified, unspecified as acute or chronic, without hemorrhage or perforation; R62.7 Adult failure to thrive; Z51.5 Encounter for palliative care; Z66 Do not resuscitate; Z79.82 Long term (current) use of aspirin; Z79.899 Other long term (current) drug therapy; Z80.3 Family history of malignant neoplasm of breast; Z87.11 Personal history of peptic ulcer disease
CPT/HCPCS: G0378; J2060; J2270; J3490